=== PATIENT | female | born 1995 | race Caucasian/White ===

== ENCOUNTER 2021-05-19 09:41 | Outpatient (REF) | payer OTHER, SELFPAY ==
--- NOTE | ~2021-05-19 | XR_ITS ---
EXAMINATION: XR RIBS, BILATERAL CLINICAL INFORMATION: Palpable lump left chest wall COMPARISON: None TECHNIQUE: 3 views of the bilateral ribs and one view of the chest were obtained. FINDINGS: Lungs are clear. No consolidation, pneumothorax, or pleural effusion. The cardiomediastinal silhouette and pulmonary vasculature are normal. No rib fracture or rib lesion is seen. There is a mild thoracolumbar scoliosis. There is an old right clavicle fracture. XR/XR ribs BI 3V IMPRESSION: Old right clavicle fracture and mild thoracolumbar scoliosis. No acute rib fracture or bone lesion seen.
== END 2021-05-19 09:42 | disposition home or self-care (01) ==
LOC: HO.HMGCX 09:41
PROVIDERS: PCP Internal Medicine; Visit Provider Internal Medicine
DX: R22.2 Localized swelling, mass and lump, trunk (principal)
CPT/HCPCS: 71110

== ENCOUNTER 2021-11-15 09:33 | Outpatient (REF) | payer OTHER, SELFPAY ==
[2021-11-15 11:54] LABS: Alanine Aminotransferase 20 U/L (0-31); Anion Gap 12 (12-20); Aspartate Amino Transferase 14 U/L (5-31); Blood Urea Nitrogen 16 mg/dL (9-16); Calcium 9.5 mg/dL (8.4-10.2); Carbon Dioxide 25 mmol/L (22-29); Chloride 108 mmol/L (96-108); Cholesterol 189 mg/dL; Estimated Glomerular Filt Rate > 60; Glucose Fasting 88 mg/dL (60-99); HDL Cholesterol 54 mg/dL; LDL Cholesterol Calculated 106 mg/dl; Potassium 4.8 mmol/L (3.3-5.1); Sodium 140 mmol/L (135-145); Triglycerides 146 mg/dL
== END 2021-11-15 09:34 | disposition home or self-care (01) ==
LOC: HO.HMGCLDS 09:33
PROVIDERS: PCP Internal Medicine; Visit Provider Internal Medicine
DX: Z00.01 Encounter for general adult medical examination with abnormal findings (principal)
CPT/HCPCS: 36415; 80048; 80061; 84450; 84460

== ENCOUNTER 2022-10-23 12:22 | Outpatient (REF) | payer OTHER, SELFPAY ==
[2022-10-23 13:15] LABS: Influenza A PCR POSITIVE (Negative); Influenza B PCR NEGATIVE (Negative); Resp Syncy Virus RNA Qual PCR NEGATIVE (Negative); SARS COV2 PCR INHOUSE NEGATIVE (Negative)
== END 2022-10-23 12:23 | disposition home or self-care (01) ==
LOC: HO.LNP 12:22
PROVIDERS: Visit Provider Internal Medicine
DX: Z20.822 Contact with and (suspected) exposure to COVID-19 (principal); R43.9 Unspecified disturbances of smell and taste
CPT/HCPCS: 0241U

== ENCOUNTER 2024-06-11 07:57 | Outpatient (AMB) | payer OTHER, SELFPAY ==
[2024-06-11 08:01] VITALS: BP 120/80; PULSE 85; O2SAT 98; BMI 32.2
--- NOTE | 2024-06-11 08:01 | A.OFFPC_ITS ---
Vital Signs 06/11/24 08:01 Height 5 ft 3 in Weight 182 lb BMI 32.2 BP 120/80 Blood Pressure Location Lt brachial Position Sitting Pulse 85 Pulse Source Pulse Oximeter Pulse Oximetry (%) 98 Oxygen Delivery Method Room Air Intake Visit Reasons: PE Intake Note: Pt is here today for PE. Pt states that she has [facility] at [facility] and she had a pap in December of this year. Allergies pollen Allergy (Unknown, Uncoded 06/11/24 08:10) Sneezing scented soap Allergy (Unknown, Uncoded 06/11/24 08:10) rash Medication List - Last Reconciled 06/14/24 by Svetlana Wilson MD acetaminophen (Tylenol) 650 mg PO Q6H PRN albuterol sulfate 90 mcg/actuation 2 puffs inhalation QID PRN Colace (docusate sodium) 100 mg PO DAILY NS [id number] 12.5-30-1,000 mg/30 mL 30 mL PO Q4-6H PRN levonorgestrel (Mirena) intrauterine loratadine (Claritin) 10 mg PO DAILY multivitamin 1 tab PO DAILY omeprazole 20 mg PO DAILY Tobacco use date assessed: 06/11/24 Dental Screening Dental Screen Date: 06/11/24 Did you have a dental visit in the last 12 months?: Yes Did you have a dental problem in the last 6 months where you did not have access to dental care?: No Was dental information given to patient?: Patient has dentist HPI PE HPI Details 29-year-old lady here today for a physic al exam. She currently sees [facility] for her routine Pap and pelvic exam, last Pap per patient was done earlier this year which showed negative findings. She is currently on Nexplanon for control. Takes loratadine as needed for seasonal allergies Sees her criminal psychologist yearly, uses sunscreen [facility] Medical History (Updated 06/11/24 @ 08:40 by Svetlana Wilson MD) Obesity (BMI 30.0-34.9) Constipation History of basal cell cancer Heartburn Annual visit for general adult medical examination with abnormal findings Surgical History History of removal of cyst History of tonsillectomy Family History Father Substance use disorder Mental health disorder Mother Crohn's disease IBS (irritable bowel syndrome) Maternal Grandfather Bladder cancer Paternal Grandmother Cancer Paternal Grandfather Lung cancer Sister Mental health disorder Maternal Grandmother Substance use disorder Social History Housing: House Alcohol intake: current Patient Tobacco Use Status: Never used Tobacco service: No Current occupational status: employed Cognitive needs: No Hearing needs: No Vision needs: Yes Female Reproductive History Menstrual Date of last pap smear: 01/08/24 Other: [employer] for her routine pelvic and Pap exam Questionnaire PHQ-9 Over the last 2 weeks, how often have you been bothered by any of the following problems? 1. Little interest or pleasure in doing things: not at all 2. Feeling down, depressed, or hopeless: not at all 3. Trouble falling or staying asleep, or sleeping too much: not at all 4. Feeling tired or having little energy: not at all 5. Poor appetite or overeating: several days 6. Feeling bad about yourself - or that you are a failure or have let yourself or your family down: not at all 7. Trouble concentrating on things, such as reading the newspaper or watching television: not at all 8. Moving or speaking so slowly that other people could have noticed. Or the opposite - being so fidgety or restless that you have been moving around a lot more than usual: not at all 9. Thoughts that you would be better off or of hurting yourself in some way: not at all Total score: 1 Depression Screening Interpretation: Negative Depression Screening Done: Yes Source: Developed by Drs. Solo Sparks, Maxine Bess, Samuel Orozco and colleagues, with an educational carmela from [employer]. Thrive Questionnaire Date Thrive assessed: 06/11/24 I am a: Patient What is your living situation today?: I have a steady place to live Within the past 12 months, did the food you bought not last and you didn't have the money to get more?: Never true Within the past 12 months, did you worry whether your food would run out before you got money to buy more?: Never true Do you have trouble paying for medicines?: No Do you have trouble getting transportation to medical appointments?: No Do you have trouble paying your heating and electricity bill?: No Do you have trouble taking care of your child, family member or friend?: No Do you have trouble with day-to-day activities such as bathing, preparing meals, shopping, managing finances, etc.?: No Are you currently unemployed and looking for a job?: No Are you interested in more education?: No Please select the resources that you would like help with: Housing/Chcf Currently or been in a relationship where the following occur: No concerns reported THRIVE Score: 0 AUDIT C Alcohol Use Questionnaire (AUDIT-C) 1. How often do you have a drink containing alcohol?: Monthly or less 2. How many drinks containing alcohol do you have on a typical day when you are drinking?: 1 or 2 3. How often do you have six or more drinks on one occasion?: Never Total Score: 1 MONICA-7 AMB Questionnaire MONICA-7 Date MONICA - 7 assessed: 06/11/24 Feeling nervous, anxious, or on edge: 1 = Several days Not being able to stop or control worryin = Not at all Worrying too much about different things: 1 = Several days Trouble relaxin = Several days Being so restless that it is hard to sit still: 1 = Several days Becoming easily annoyed or irritable: 1 = Several days Feeling afraid as if something awful might happen: 0 = Not at all Total MONICA-7 score (0-4 normal; 5-9 mild; 10-14 moderate; 15-21 severe): 5 Source: Developed by Drs. Solo Sparks, Maxine Bess, Samuel Orozco and colleagues, with an educational carmela from [employer]. MONICA-7 Assessment Billing MONICA-7 Assessment Tool: MONICA-7 Assessment 57527 Review of Systems Const Denies body aches, Denies fatigue, Denies fever(s), Denies headache(s) and Denies weakness Eyes Denies change in vision, Denies eye discharge and Denies itchy eyes ENT Reports Normal hearing present, Denies dizziness, Denies headache(s), Denies nasal congestion, Denies nasal discharge and Denies sore throat Card Denies chest pain, Denies lightheadedness, Denies palpitations and Denies dyspnea Resp Denies chest congestion, Denies cough, Denies dyspnea and Denies wheezing GI Denies abdominal pain, Reports constipation (Occasional) and Denies heartburn (Currently on omeprazole) Details: Sees [facility] for her routine Pap and pelvic exam Denies urinary frequency, Denies dysuria and Denies urinary urgency Musc Reports no additional complaints Skin/Breast Reports as per HPI Neuro Reports Normal hearing present, Denies dizziness, Denies headache(s), Denies Sensory deficit (Neuro) and Denies weakness Psych Reports no additional complaints Endo Denies fatigue, Denies polydipsia, Denies polyuria and Denies palpitations Wilbert/Lymph Denies easy bruising Aller/Immun Denies itchy eyes, Denies seasonal rhinorrhea and Denies wheezing Physical exam (Primary Care) Vital Signs: Last Vital Signs Pulse 85 06/11/24 08:01 BP 120/80 06/11/24 08:01 Pulse Ox 98 06/11/24 08:01 Oxygen Delivery Method Room Air 06/11/24 08:01 BMI result Body Mass Index 32.2 Tobacco/Smoking Status: Tobacco use Status Tobacco use date assessed 06/11/24 06/11/24 08:07 Patient Tobacco Use Status Never used Tobacco 06/11/24 08:07 PHQ-9: PHQ-9 Score PHQ-9: Total score 1 06/11/24 08:15 Depression Screening Interpretation: Negative Thrive Assessment: Date of Thrive Assessment Date Thrive assessed 06/11/24 06/11/24 08:07 Currently or been in a relationship where the following occur: No concerns reported Const General: cooperative, healthy appearing, no acute distress and alert Nutritional Appearance: obese Orientation/consciousness: patient oriented x3 HENMT Head: Yes normal to inspection and Yes normocephalic Ears: external ears normal, TM's normal bilaterally and EAC's normal General nose exam: Normal external nose present and No nasal discharge present Face and sinus: Yes face symmetric Mouth: Normal oral and palatal mucosa present, tongue normal, oropharynx normal and moist mucous membranes Eyes Conjunctivae: conjunctivae normal Sclerae: sclerae normal Pupils: Equal, round and reactive pupils present EOM: EOMs intact bilaterally Neck Neck: Yes full ROM and Yes no lymphadenopathy Thyroid: Thyroid normal Carotids: normal carotid upstroke Lymphatic: no lymphadenopathy noted Chest Chest palpation & inspection: normal inspection of the chest Resp Effort & Inspection: normal respiratory effort and able to speak in complete sentences Auscultation: clear to auscultation bilaterally Cardio Jugular venous distension: no JVD Rate: regular rate Rhythm: regular rhythm Heart sounds: S1 normal heart sound present and S2 normal heart sound present GI Inspection: Yes normal to inspection Palpation (GI): Soft to palpation Auscultation: normal bowel sounds General: Yes no CVA tenderness and Yes deferred (Go[facility] to [facility] for her routine Pap and pelvic exam, currently up-to) Back/Spine/Pelvis Back: no CVA tenderness Skin General skin exam: no rashes or lesions noted Neuro General: patient oriented x3, gait normal, moves all extremities, no focal motor deficits and CN's II-XI intact bilaterally Cranial nerves: Yes Equal, round and reactive pupils present and Yes Normal hearing present Cognition (Neuro): normal cognition Gait exam (Neuro): Normal gait present Motor exam (neuro): 5/5 motor strength present throughout Sensory Exam: No Sensory deficit (Neuro) Extrem General: Yes normal to inspection, Yes full ROM, Yes no pedal edema and Yes normal gait Psych Appearance: grossly normal and well kempt Mental Status: mental status grossly normal Speech and movement: Normal speech and movement present Affect: normal affect Attitude: cooperative Thought process: Normal thought process present Thought content: Normal thought content present Assessment and Plan Assessment & Plan (1) Annual visit for general adult medical examination with abnormal findings: Code(s): Z00.01 - Encounter for general adult medical examination with abnormal findings Plan: Will check appropriate labs. Recommended regular dental visit every 6 months and regular eye exams, at least every 2 years. She sees [facility] for routine Pap and pelvic exam, advised to do regular breast exam to check for any mass. Currently on Mirena IUD for control, inserted 01/2023. Has had COVID vaccines but does not want to get the booster, up-to-date with her yearly flu shot, and Tdap. Advised to adhere to healthy eating habits, avoid soda, junk food, fried foods, eat more fruits vegetables, lean meat fish and increase dietary fiber intake. Recommended to do at least 15 to 30 minutes of cardio exercises daily. (2) Heartburn: Code(s): R12 - Heartburn Plan: Prescription given for omeprazole, to take 20 mg capsules once a day at least an hour before eating dinner or 2 hours after eating. Take it daily for 8 weeks, and as needed afterwards. Return to clinic if symptoms persist. Advised to avoid dietary triggers for heartburn which includes anything acidic like tomatoes, and avoid fried foods greasy foods especially at night. Avoid spicy, greasy foods that can trigger heartburn and avoid soda, alcohol, coffee citrus, tomatoes, onions, chocolate and peppermint. Eat a series of small meals throughout the day rather than a huge lunch for dinner, and advised to stay in shape, as excess body fat puts pressure on your stomach, stay upright after a meal, at least for 2 hours, avoid wearing tight clothing that puts pressure on your stomach, and avoid smoking as well as reduce stress which may increase stomach acid and cause heartburn . * (3) History of basal cell cancer: Comment: Followed at [facility] Code(s): Z85.828 - Personal history of other malignant neoplasm of skin Plan: Currently being followed by [facility] yearly, has been using sunscreen all the time and knows to reapply it after 2 hours (4) Constipation: Code(s): K59.00 - Constipation, unspecified Qualifiers: Constipation type: unspecified constipation type Qualified Code(s): K59.00 - Constipation, unspecified Plan: Continue using dietary fiber gummies, make sure that you drink plenty of water, may try prune juice,. Try eating to prunes a day to see if this will help prevent constipation. Prescription also sent for Colace 100 mg capsule to take 1 capsule once or twice a day as needed for constipation. Staying active also helps with preventing constipation. (5) Obesity (BMI 30.0-34.9): Code(s): E66.9 - Obesity, unspecified Plan: Discussed need to increase activity and weight reduction. Recommended focusing on improving health instead of dieting. Mediterranean diet is a healthy diet that helps, limit food high in fat, sugar, and calories. Eat slowly, pay attention to portion sizes, plan your meals ahead of time, start regular physical activity, at least 150 minutes of moderate intensity exercise, or 90 minutes per week of vigorous exercise. Keeping a food diary, tracking what you eat and your physical activity can help assess what improvements you can make. There are many health problems associated with being overweight/obese, so it is important to improve your diet and exercise. There are medications and surgical options available, but Lifestyle changes are the 1st step. Orders: Orders Basic Metabolic Panel Fasting 06/11/24 R12 - Heartburn, Z00.01 - Encounter for general adult medical examination with abnormal findings Lipid Panel 06/11/24 R12 - Heartburn, Z00.01 - Encounter for general adult me dical examination with abnormal findings Vitamin D 25-OH Total 06/11/24 R12 - Heartburn, Z00.01 - Encounter for general adult medical examination with abnormal findings Aspartate Amino Transferase 06/11/24 R12 - Heartburn, Z00.01 - Encounter for general adult medical examination with abnormal findings Complete Blood Count Auto Diff 06/11/24 R12 - Heartburn, Z00.01 - Encounter for general adult medical examination with abnormal findings Alanine Aminotransferase 06/11/24 R12 - Heartburn, Z00.01 - Encounter for general adult medical examination with abnormal findings Medications: New omeprazole 20 mg PO DAILY 90 caps 0RF R12 - Heartburn Colace (docusate sodium) 100 mg PO DAILY 90 caps 2RF NS Coding Level of Care Code Est Pt Prev Care 18-39y(41065) Diagnoses Annual visit for general adult medical examination with abnormal findings Z00.01 Heartburn R12 History of basal cell cancer Z85.828 Constipation, unspecified constipation type K59.00 Constipation type: unspecified constipation type Obesity (BMI 30.0-34.9) E66.9 Additional Codes MONICA-7 Assessment Billing - MONICA-7 Assessment Tool: MONICA-7 Assessment 50314 ([id number])
== END 2024-06-11 08:47 | disposition home or self-care (01) ==
PROVIDERS: PCP Internal Medicine; Visit Provider Internal Medicine
DX: Z00.01 Encounter for general adult medical examination with abnormal findings (principal); R12 Heartburn; Z85.828 Personal history of other malignant neoplasm of skin; K59.00 Constipation, unspecified; E66.9 Obesity, unspecified; Z68.32 Body mass index [BMI] 32.0-32.9, adult
CPT/HCPCS: 99213; 99395

== ENCOUNTER 2024-06-15 13:09 | Outpatient (AMB) | payer OTHER, SELFPAY ==
--- NOTE | 2024-06-15 13:59 | MHC.OFFWIV ---
Intake Vital Signs 06/15/24 14:00 Height 5 ft 3 in Weight 181 lb BMI 32.1 BP 114/80 Blood Pressure Location Rt brachial Position Sitting Pulse 81 Pulse Source Pulse Oximeter Temp 99.1 F Temp Source Oral Pulse Oximetry (%) 98 Oxygen Delivery Method Room Air Intake Visit Reasons: rt side pain, dizziness, constipation 2 days Intake Note: pt here c/o RT side pain, dizziness and constipation x 2 days Patient Tobacco Use Status: Never used Tobacco Allergies pollen Allergy (Unknown, Uncoded 06/15/24 13:59) Sneezing scented soap Allergy (Unknown, Uncoded 06/15/24 13:59) rash Do you need a note to return to daycare/school/sports/work: Yes HPI rt side pain, dizziness, constipation 2 days HPI Details This note is constructed using voice recognition software. While every effort has been made to ensure accuracy, experimental psychologist errors may have been included. The patient is a 29 year old female who presents to the clinic today with right-sided pain, dizziness, and constipation. She notes a chronic history of constipation which seems to be worse in the last couple of days. Additionally she notes that she has some relatively severe right-sided lower abdomen pain which has been colicky in nature, and when it was at its worst caused the dizziness. She denies fever, chills, nausea, vomiting, diarrhea. She does note that she was recently started on a new medication omeprazole for acid reflux. [facility] Medical History (Updated 06/11/24 @ 08:40 by Svetlana Wilson MD) Obesity (BMI 30.0-34.9) Constipation History of basal cell cancer Heartburn Annual visit for general adult medical examination with abnormal findings Surgical History History of removal of cyst History of tonsillectomy Family History Father Substance use disorder Mental health disorder Mother Crohn's disease IBS (irritable bowel syndrome) Maternal Grandfather Bladder cancer Paternal Grandmother Cancer Paternal Grandfather Lung cancer Sister Mental health disorder Maternal Grandmother Substance use disorder Social History Housing: House Alcohol intake: current Patient Tobacco Use Status: Never used Tobacco service: No Current occupational status: employed Cognitive needs: No Hearing needs: No Vision needs: Yes Review of Systems Const All systems reviewed & are unremarkable except as noted in HPI and below Physical Exam Vital Signs: Last Vital Signs Temp 99.1 F 06/15/24 14:00 Pulse 81 06/15/24 14:00 BP 114/80 06/15/24 14:00 Pulse Ox 98 06/15/24 14:00 Oxygen Delivery Method Room Air 06/15/24 14:00 BMI result Body Mass Index 32.1 Const General: cooperative, healthy appearing, comfortable, no acute distress and alert Orientation/consciousness: patient oriented x3 Limitations: no limitations HEENT Head: Yes normal to inspection and Yes normocephalic Ears: hearing grossly normal bilaterally General nose exam: Normal external nose present Face and sinus: Yes normal facial exam and Yes sinuses nontender Mouth: Normal oral and palatal mucosa present and tongue normal Teeth and gingiva: dentition normal Throat: Yes posterior oropharynx normal Eyes General: appearance normal, both eyes and all related structures Neck Neck: Yes normal visual inspection, Yes full ROM and Yes no lymphadenopathy Resp Effort & Inspection: normal respiratory effort and able to speak in complete sentences Auscultation: clear to auscultation bilaterally Cardio Jugular venous distension: no JVD Palpation: normal PMI Rate: regular rate Heart sounds: S1 normal heart sound present, S2 normal heart sound present, no click, no gallops, no murmurs and no rubs Bruits: no abdominal aortic bruits GI Other: Positive heel strike. Inspection: Yes normal to inspection Palpation (GI): No Abdominal aortic bruit present, Soft to palpation, Tenderness to palpation present (GI) in the RLQ, Guarding due to palpation present (GI) in the RLQ and No hepatosplenomegaly present Percussion: Yes normal to percussion Auscultation: normal bowel sounds Skin General skin exam: no rashes or lesions noted, elasticity normal and turgor normal Neuro General: patient oriented x3 Psych Appearance: grossly normal Mental Status: mental status grossly normal Speech and movement: Normal speech and movement present Affect: normal affect Assessment & Plan Assessment & Plan (1) Right lower quadrant pain: Code(s): R10.31 - Right lower quadrant pain Plan: Physical examination concerning for possible appendix involvement. Advised patient to proceed to emergency room for further evaluation as we do not have CT scan available here. Patient agrees to proceed to the emergency room at this time. Additionally we discussed potential for ovary involvement including cyst, which would also benefit from emergency room workup. Plan See above for full details and plan. Coding Level of Care Code Est Pt Level 4 (95630) Diagnoses Right lower quadrant pain R10.31
[2024-06-15 14:00] VITALS: BP 114/80; PULSE 81; TEMP 37.3; O2SAT 98; BMI 32.1
== END 2024-06-15 14:50 | disposition home or self-care (01) ==
PROVIDERS: PCP Internal Medicine; Visit Provider Registered Nurse
DX: R10.31 Right lower quadrant pain (principal)
CPT/HCPCS: 99214

== ENCOUNTER 2024-06-24 09:38 | Outpatient (REF) | payer OTHER, SELFPAY ==
[2024-06-24 11:11] LABS: MANUAL DIFF FLAG NO
[2024-06-24 11:22] LABS: Basophils Absolute Auto 0.1 X10*3/uL (0.0-0.2); Basophils Percent Auto 0.7 % (0-2); Eosinophils Absolute Auto 0.2 X10*3/uL (0.0-0.4); Eosinophils Percent Auto 2.3 % (0-4); Hematocrit 42.7 % (37.0-47.0); Hemoglobin 14.3 g/dl (12.0-16.0); Imm Gran Abs Auto 0.01 X10*3/uL (0.00-0.03); Imm Gran Pct Auto 0.1 % (0.0-0.4); Lymphocytes Percent Auto 41.9 % (20-40); Mean Corpuscular HGB Conc 33.5 g/dl (31.0-35.0); Mean Corpuscular Hemoglobin 30.5 pg (27.0-33.0); Mean Platelet Volume 9.8 fL (9.4-12.3); Monocytes Absolute Auto 0.4 X10*3/uL (0.1-1.2); Monocytes Percent Auto 5.5 % (2-11); Neutrophils Absolute Auto 3.5 x10*3/uL (2.0-8.3); Neutrophils Percent Auto 49.5 % (45-73); Platelet Count 328 X10*3/uL (160-400); Red Blood Count 4.69 X10*6/uL (4.20-5.50); Red Cell Distribution Width 12.7 % (11.0-16.0)
[2024-06-24 14:25] LABS: Alanine Aminotransferase 13 U/L (0-31); Anion Gap 14 (12-20); Aspartate Amino Transferase 12 U/L (5-31); Blood Urea Nitrogen 17 mg/dL (9-16); Calcium 9.6 mg/dL (8.4-10.2); Carbon Dioxide 22 mmol/L (22-29); Chloride 109 mmol/L (96-108); Cholesterol 174 mg/dL (<200); Estimated Glomerular Filt Rate > 60; Glucose Fasting 97 mg/dL (60-99); HDL Cholesterol 46 mg/dL (>40); LDL Cholesterol Calculated 106 mg/dL (<100); Sodium 141 mmol/L (135-145); Triglycerides 111 mg/dL (<150); Vitamin D 25-OH Total 36.1 ng/mL (>30)
== END 2024-06-24 09:39 | disposition home or self-care (01) ==
LOC: HO.HMGCLDS 09:38
PROVIDERS: PCP Internal Medicine; Visit Provider Internal Medicine
DX: Z00.01 Encounter for general adult medical examination with abnormal findings (principal); R12 Heartburn
CPT/HCPCS: 36415; 80048; 80061; 82306; 84450; 84460; 85025